=== PATIENT | male | born 1995 | race American Indian/Alaskan Native ===

== ENCOUNTER 2016-10-05 08:57 | Emergency (ER) | payer SELFPAY ==
[2016-10-05 09:38] VITALS: BP 123/70
== END 2016-10-05 11:06 | disposition left against medical advice (07) ==
LOC: ED 08:57
DX: M25.572 Pain in left ankle and joints of left foot (principal); Z53.21 Procedure and treatment not carried out due to patient leaving prior to being seen by health care provider